=== PATIENT | female | born 1990 | race Caucasian/White ===

== ENCOUNTER 2019-01-03 18:43 | Emergency (ER) | payer OTHER ==
[2019-01-03 18:54] VITALS: RESP 16
[2019-01-03 19:42] LABS: Basophils % (A) 0 %; Eosinophils # (A) 0.1 k/uL (0-0.7); Eosinophils % (A) 1 %; HCT 37.3 % (34.0-46.0); HGB 12.8 gm/dL (11.4-16.0); Lymphocytes # (A) 2.7 k/uL (1.0-4.8); Lymphocytes % (A) 34 %; MCH 32.8 pg (25.0-35.0); MCHC 34.3 g/dL (31.0-37.0); MCV 95.7 fL (80.0-100.0); Mean Platelet Volume 7.1; Monocytes # (A) 0.3 k/uL (0-1.0); Monocytes % (A) 3 %; Neutrophils # (A) 4.7 k/uL (1.3-7.7); Neutrophils % (A) 60 %; Platelet Count 229 k/uL (150-450); RBC 3.89 m/uL (3.80-5.40); RDW 11.8 % (11.5-15.5); WBC 7.9 k/uL (3.8-10.6)
[2019-01-03] MEDS ORDERED: ACETAMINOPHEN TAB 325 MG TAB PO STA (19:47)
[2019-01-03 19:48] LABS: Appearance,Urine Clear (Clear); Bilirubin,Urine Negative (Negative); Blood,Urine Negative (Negative); Color,Urine Yellow; Glucose,Urine (UA) Negative (Negative); Ketones,Urine Negative (Negative); Leukocyte Esterase,Urine Negative (Negative); Nitrite,Urine Negative (Negative); Protein,Urine Negative (Negative); Specific Gravity,Urine 1.021 (1.001-1.035); Urobilinogen,Urine <2.0 mg/dL (<2.0)
--- NOTE | 2019-01-03 19:48 | ED ---
General Adult HPI - General Source: patient, RN notes reviewed Mode of arrival: ambulatory Limitations: no limitations <Crow Yoo - Last Filed: 01/03/19 19:43> <Chris Lyons - Last Filed: 01/03/19 21:04> - General Chief complaint: Recheck/Abnormal Lab/Rx Stated complaint: early /High BP & headache Time Seen by Provider: 01/03/19 18:58 - History of Present Illness Initial comments: This a 28-year-old female presents emergency Department with multiple complaints early . Patient states that she is concerned thyroid may be off as she had issues during her second with her thyroid. Patient states that she is A0 and just found out she was today. Patient states her last week she's felt nauseated had some intermittent headaches and just not felt her usual self. She is no current chest pain or shortness breath no abdominal pain no vaginal bleeding or abnormal discharge. No dysuria no hematuria. Patient did contact her [facility]PECTOR today in which she has a follow-up appointment. Patient states she is not around this area and will be following up at [facility] [facility]. (Crow Yoo) - Related Data Allergies Allergy/AdvReac Type Severity Reaction Status Date / Time metronidazole [From Flagyl] AdvReac DIZZINESS Verified 01/03/19 20:33 Review of Systems ROS Other: All systems not noted in ROS Statement are negative. <Crow Yoo - Last Filed: 01/03/19 19:43> ROS Other: All systems not noted in ROS Statement are negative. <Chris Lyons - Last Filed: 01/03/19 21:04> ROS Statement: Those systems with pertinent positive or pertinent negative responses have been documented in the HPI. Past Medical History Past Medical History: Thyroid Disorder History of Any Multi-Drug Resistant Organisms: None Reported Past Surgical History: Adenoidectomy, Cholecystectomy, Ear Surgery, Tonsillectomy Past Psychological History: Anxiety, Bipolar, Depression Smoking Status: Never smoker Past Alcohol Use History: None Reported Past Drug Use History: Marijuana <Crow Yoo - Last Filed: 01/03/19 19:43> General Exam Limitations: no limitations General appearance: alert, in no apparent distress Head exam: Present: atraumatic, normocephalic, normal inspection Eye exam: Present: normal appearance, PERRL, EOMI. Absent: scleral icterus, conjunctival injection, periorbital swelling ENT exam: Present: normal exam, mucous membranes moist Neck exam: Present: normal inspection, full ROM. Absent: tenderness, meningismus, lymphadenopathy Respiratory exam: Present: normal lung sounds bilaterally. Absent: respiratory distress, wheezes, rales, rhonchi, stridor Cardiovascular Exam: Present: regular rate, normal rhythm, normal heart sounds. Absent: systolic murmur, diastolic murmur, rubs, gallop, clicks GI/Abdominal exam: Present: soft, normal bowel sounds. Absent: distended, tenderness, guarding, rebound, rigid Neurological exam: Present: alert, oriented X3. Absent: altered Skin exam: Present: warm, dry, intact, normal color. Absent: rash <Crow Yoo - Last Filed: 01/03/19 19:43> Course Vital Signs 01/03/19 18:49 Temperature 97.9 F Pulse Rate 90 Respiratory 16 Rate Blood Pressure 126/76 O2 Sat by Pulse 99 Oximetry Medical Decision Making - Lab Data Result diagrams: 01/03/19 19:27 <Crow Yoo - Last Filed: 01/03/19 19:43> - Lab Data Result diagrams: 01/03/19 19:27 01/03/19 19:27 <Chris Lyons - Last Filed: 01/03/19 21:04> - Lab Data Lab Results 01/03/19 01/03/19 01/03/19 Range/Units 19:27 19:27 19:27 WBC 7.9 (3.8-10.6) k/uL RBC 3.89 (3.80-5.40) m/uL Hgb 12.8 (11.4-16.0) gm/dL Hct 37.3 (34.0-46.0) % MCV 95.7 (80.0-100.0) fL MCH 32.8 (25.0-35.0) pg MCHC 34.3 (31.0-37.0) g/dL RDW 11.8 (11.5-15.5) % Plt Count 229 (150-450) k/uL Neutrophils % 60 % Lymphocytes % 34 % Monocytes % 3 % Eosinophils % 1 % Basophils % 0 % Neutrophils # 4.7 (1.3-7.7) k/uL Lymphocytes # 2.7 (1.0-4.8) k/uL Monocytes # 0.3 (0-1.0) k/uL Eosinophils # 0.1 (0-0.7) k/uL Basophils # 0.0 (0-0.2) k/uL Sodium 139 (137-145) mmol/L Potassium 4.0 (3.5-5.1) mmol/L Chloride 103 (98-107) mmol/L Carbon Dioxide 26 (22-30) mmol/L Anion Gap 10 mmol/L BUN 15 (7-17) mg/dL Creatinine 0.72 (0.52-1.04) mg/dL Est GFR (CKD-EPI)AfAm >90 (>60 ml/min/1.73 sqM) Est GFR (CKD-EPI)NonAf >90 (>60 ml/min/1.73 sqM) Glucose 91 (74-99) mg/dL Calcium 9.2 (8.4-10.2) mg/dL TSH 3.490 (0.465-4.680) mIU/L HCG, Quant 137.2 mIU/mL Urine Color Yellow Urine Appearance Clear (Clear) Urine pH 7.0 (5.0-8.0) Ur Specific [place] 1.021 (1.001-1.035) Urine Protein Negative (Negative) Urine Glucose (UA) Negative (Negative) Urine Ketones Negative (Negative) Urine Blood Negative (Negative) Urine Nitrite Negative (Negative) Urine Bilirubin Negative (Negative) Urine Urobilinogen <2.0 (<2.0) mg/dL Ur Leukocyte Esterase Negative (Negative) Disposition <Crow Yoo - Last Filed: 01/03/19 19:43> Is patient prescribed a controlled substance at d/c from ED?: No <Chris Lyons - Last Filed: 01/03/19 21:04> Clinical Impression: Normal Disposition: HOME SELF-CARE Condition: Good Instructions (If sedation given, give patient instructions): (ED) Referrals: Nonstaff,Physician [Primary Care Provider] - 1-2 days
[2019-01-03 19:51] LABS: African American GFR (CKD) >90 (>60 ml/min/1.73 sqM); Anion Gap 10 mmol/L; Blood Urea Nitrogen 15 mg/dL (7-17); Calcium 9.2 mg/dL (8.4-10.2); Carbon Dioxide 26 mmol/L (22-30); Chloride 103 mmol/L (98-107); Glucose 91 mg/dL (74-99); Sodium 139 mmol/L (137-145)
[2019-01-03 20:08] LABS: HCG,Quantitative Serum 137.2 mIU/mL
[2019-01-03 21:17] VITALS: BP 110/63; PULSE 80; TEMP 98.2
== END 2019-01-03 21:17 | disposition home or self-care (01) ==
LOC: EC 18:43
DX: O99.89 Other specified diseases and conditions complicating pregnancy, childbirth and the puerperium (principal); R51 Headache; R11.0 Nausea; Z88.1 Allergy status to other antibiotic agents; Z3A.01 Less than 8 weeks gestation of pregnancy
CPT/HCPCS: 36415; 80048; 81003; 84443; 84702; 85025; 99284

== ENCOUNTER 2019-01-10 11:28 | Emergency (ER) | payer OTHER ==
[2019-01-10 11:48] VITALS: TEMP 98.5
[2019-01-10 12:17] LABS: Basophils % (A) 0 %; Eosinophils # (A) 0.1 k/uL (0-0.7); Eosinophils % (A) 1 %; HCT 37.6 % (34.0-46.0); HGB 13.2 gm/dL (11.4-16.0); Lymphocytes # (A) 1.6 k/uL (1.0-4.8); Lymphocytes % (A) 15 %; MCH 33.1 pg (25.0-35.0); MCV 94.6 fL (80.0-100.0); Mean Platelet Volume 7.2; Monocytes # (A) 0.4 k/uL (0-1.0); Monocytes % (A) 4 %; Neutrophils # (A) 8.7 k/uL (1.3-7.7); Neutrophils % (A) 80 %; Platelet Count 233 k/uL (150-450); RBC 3.97 m/uL (3.80-5.40); RDW 11.7 % (11.5-15.5); WBC 10.9 k/uL (3.8-10.6)
[2019-01-10] MEDS ORDERED: ACETAMINOPHEN TAB 325 MG TAB PO STA (12:23)
--- NOTE | 2019-01-10 12:26 | ED ---
Female Urogenital HPI - General Chief complaint: Urogenital Stated complaint: Poss Miscarriage Time Seen by Provider: 01/10/19 11:46 Source: patient Mode of arrival: wheelchair Limitations: no limitations - History of Present Illness Initial comments: A1 with LMP 12/11 presenting to the ER for cc of cramping/vaginal bleeidng. Patient states she has had cramping and vaginal bleeding for weeks. Patient states the bleeding increased and now she has large clots. Patient concerned a miscarriage. Patient denies any unilateral pain denies any severe pain states is more so like cramping. Patient denies back pain fevers chills she denies vaginal discharge. Patient denies dysuria urgency frequency. Remaining review of systems negative. Upon arrival patient appears well-nourished signs of acute distress. - Related Data Home Medications Medication Instructions Recorded Confirmed Levothyroxine Sodium [Synthroid] 88 mcg PO DAILY 01/03/19 01/10/19 Acetaminophen Tab [Tylenol Tab] 500 mg PO Q6HR PRN 01/10/19 01/10/19 Allergies Allergy/AdvReac Type Severity Reaction Status Date / Time metronidazole [From Flagyl] AdvReac DIZZINESS Verified 01/10/19 12:06 Review of Systems ROS Statement: Those systems with pertinent positive or pertinent negative responses have been documented in the HPI. ROS Other: All systems not noted in ROS Statement are negative. Past Medical History Past Medical History: Thyroid Disorder History of Any Multi-Drug Resistant Organisms: None Reported Past Surgical History: Adenoidectomy, Cholecystectomy, Ear Surgery, Tonsillectomy Past Psychological History: Anxiety, Bipolar, Depression Smoking Status: Never smoker Past Alcohol Use History: None Reported Past Drug Use History: Marijuana General Exam - General Exam Comments Initial Comments: General: The patient is awake and alert, in no distress, and does not appear acutely ill. Eye: Pupils are equal, round and reactive to light, extra-ocular movements are intact. No nystagmus. There is normal conjunctiva bilaterally. No signs of icterus. Ears, nose, mouth and throat: There are moist mucous membranes and no oral lesions. Neck: The neck is supple, there is no tenderness or JVD. Cardiovascular: There is a regular rate and rhythm. No murmur, rub or gallop is appreciated. Respiratory: Lungs are clear to auscultation, respirations are non-labored, breath sounds are equal. No wheezes, stridor, rales, or rhonchi. Gastrointestinal: Soft, non-distended, non-tender abdomen without masses or or ganomegaly noted. There is no rebound or guarding present. Pelvic: Cervical os is closed. Blood in vaginal vault. No adnexal cervical motion tenderness. No external lesions. Vaginal mucosa pink well rugated. Musculoskeletal: Normal ROM, no tenderness. Strength 5/5. Sensation intact. Pulses equal bilaterally 2+. Neurological: A&O x 3. CN II-XII intact, There are no obvious motor or sensory deficits. Coordination appears grossly intact. Speech is normal. Skin: Skin is warm and dry and no rashes or lesions are noted. Psychiatric: Cooperative, appropriate mood & affect, normal judgment. Limitations: no limitations Course Vital Signs 01/10/19 01/10/19 11:46 14:41 Temperature 98.5 F Pulse Rate 89 80 Respiratory 18 16 Rate Blood Pressure 122/82 134/71 O2 Sat by Pulse 97 99 Oximetry Medical Decision Making - Medical Decision Making Well appearing 28 year old female. Presents for vaginal pitting cramping. Ultrasound revealed a low-lying intrauterine . 2 early for cardiac movement. Possibility of threatened miscarriage. Patient A+. No indication of Brynn. Patient has no adnexal or cervical motion tenderness. there is discharge in the vaginal vault. Hemoglobin stable patient's vital signs stable. No heavy uncontrolled bleeding. 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 Patient is agreeable to this care plan at discharge at this time. - Lab Data Result diagrams: 01/10/19 12:00 01/10/19 12:00 Lab Results 01/10/19 01/10/19 01/10/19 Range/Units 12:00 12:00 12:00 WBC 10.9 H (3.8-10.6) k/uL RBC 3.97 (3.80-5.40) m/uL Hgb 13.2 (11.4-16.0) gm/dL Hct 37.6 (34.0-46.0) % MCV 94.6 (80.0-100.0) fL MCH 33.1 (25.0-35.0) pg MCHC 35.0 (31.0-37.0) g/dL RDW 11.7 (11.5-15.5) % Plt Count 233 (150-450) k/uL Neutrophils % 80 % Lymphocytes % 15 % Monocytes % 4 % Eosinophils % 1 % Basophils % 0 % Neutrophils # 8.7 H (1.3-7.7) k/uL Lymphocytes # 1.6 (1.0-4.8) k/uL Monocytes # 0.4 (0-1.0) k/uL Eosinophils # 0.1 (0-0.7) k/uL Basophils # 0.0 (0-0.2) k/uL Sodium 140 (137-145) mmol/L Potassium 4.1 (3.5-5.1) mmol/L Chloride 104 (98-107) mmol/L Carbon Dioxide 26 (22-30) mmol/L Anion Gap 10 mmol/L BUN 13 (7-17) mg/dL Creatinine 0.79 (0.52-1.04) mg/dL Est GFR (CKD-EPI)AfAm >90 (>60 ml/min/1.73 sqM) Est GFR (CKD-EPI)NonAf >90 (>60 ml/min/1.73 sqM) Glucose 98 (74-99) mg/dL Calcium 9.7 (8.4-10.2) mg/dL Total Bilirubin 0.4 (0.2-1.3) mg/dL AST 21 (14-36) U/L ALT 19 (9-52) U/L Alkaline Phosphatase 31 L (38-126) U/L Total Protein 7.4 (6.3-8.2) g/dL Albumin 4.4 (3.5-5.0) g/dL HCG, Quant 2130.9 mIU/mL Urine Color Urine Appearance (Clear) Urine pH (5.0-8.0) Ur Specific [place] (1.001-1.035) Urine Protein (Negative) Urine Glucose (UA) (Negative) Urine Ketones (Negative) Urine Blood (Negative) Urine Nitrite (Negative) Urine Bilirubin (Negative) Urine Urobilinogen (<2.0) mg/dL Ur Leukocyte Esterase (Negative) Urine RBC (0-5) /hpf Urine WBC (0-5) /hpf Ur Squamous Epith Cells (0-4) /hpf Urine Bacteria (None) /hpf Urine Mucus (None) /hpf Blood Type A Positive Blood Type Confirm Blood Type Recheck CABO Indicated Antibody Screen NEGATIVE Spec Expiration Date 01/13/2019 - 229901/10/19 01/10/19 Range/Units 12:02 13:05 WBC (3.8-10.6) k/uL RBC (3.80-5.40) m/uL Hgb (11.4-16.0) gm/dL Hct (34.0-46.0) % MCV (80.0-100.0) fL MCH (25.0-35.0) pg MCHC (31.0-37.0) g/dL RDW (11.5-15.5) % Plt Count (150-450) k/uL Neutrophils % % Lymphocytes % % Monocytes % % Eosinophils % % Basophils % % Neutrophils # (1.3-7.7) k/uL Lymphocytes # (1.0-4.8) k/uL Monocytes # (0-1.0) k/uL Eosinophils # (0-0.7) k/uL Basophils # (0-0.2) k/uL Sodium (137-145) mmol/L Potassium (3.5-5.1) mmol/L Chloride (98-107) mmol/L Carbon Dioxide (22-30) mmol/L Anion Gap mmol/L BUN (7-17) mg/dL Creatinine (0.52-1.04) mg/dL Est GFR (CKD-EPI)AfAm (>60 ml/min/1.73 sqM) Est GFR (CKD-EPI)NonAf (>60 ml/min/1.73 sqM) Glucose (74-99) mg/dL Calcium (8.4-10.2) mg/dL Total Bilirubin (0.2-1.3) mg/dL AST (14-36) U/L ALT (9-52) U/L Alkaline Phosphatase (38-126) U/L Total Protein (6.3-8.2) g/dL Albumin (3.5-5.0) g/dL HCG, Quant mIU/mL Urine Color Yellow Urine Appearance Clear (Clear) Urine pH 6.0 (5.0-8.0) Ur Specific [place] 1.032 (1.001-1.035) Urine Protein Trace H (Negative) Urine Glucose (UA) Negative (Negative) Urine Ketones Negative (Negative) Urine Blood Moderate H (Negative) Urine Nitrite Negative (Negative) Urine Bilirubin Negative (Negative) Urine Urobilinogen <2.0 (<2.0) mg/dL Ur Leukocyte Esterase Trace H (Negative) Urine RBC 2 (0-5) /hpf Urine WBC 1 (0-5) /hpf Ur Squamous Epith Cells 1 (0-4) /hpf Urine Bacteria Rare H (None) /hpf Urine Mucus Few H (None) /hpf Blood Type Blood Type Confirm A Positive Blood Type Recheck Antibody Screen Spec Expiration Date Disposition Clinical Impression: Threatened miscarriage Disposition: HOME SELF-CARE Condition: Good Instructions (If sedation given, give patient instructions): Threatened Miscarriage (ED) Additional Instructions: Please use medication as discussed. Please follow-up with your OBGYN in next week. Please return to emergency room if the symptoms increase or worsen or for any other concerns. Is patient prescribed a controlled substance at d/c from ED?: No Referrals: Nonstaff,Physician [Primary Care Provider] - 1-2 days Time of Disposition: 14:29
[2019-01-10 12:28] LABS: ALT 19 U/L (9-52); AST 21 U/L (14-36); African American GFR (CKD) >90 (>60 ml/min/1.73 sqM); Albumin 4.4 g/dL (3.5-5.0); Alkaline Phosphatase 31 U/L (38-126); Anion Gap 10 mmol/L; Blood Urea Nitrogen 13 mg/dL (7-17); Calcium 9.7 mg/dL (8.4-10.2); Carbon Dioxide 26 mmol/L (22-30); Chloride 104 mmol/L (98-107); Glucose 98 mg/dL (74-99); Non-African American GFR(CKD) >90 (>60 ml/min/1.73 sqM); Potassium 4.1 mmol/L (3.5-5.1); Sodium 140 mmol/L (137-145); Total Bilirubin 0.4 mg/dL (0.2-1.3); Total Protein 7.4 g/dL (6.3-8.2)
[2019-01-10 12:43] LABS: HCG,Quantitative Serum 2130.9 mIU/mL
[2019-01-10 13:12] LABS: Appearance,Urine Clear (Clear); Bacteria,Urine Rare /hpf; Bilirubin,Urine Negative (Negative); Blood,Urine Moderate (Negative); Color,Urine Yellow; Glucose,Urine (UA) Negative (Negative); Ketones,Urine Negative (Negative); Leukocyte Esterase,Urine Trace (Negative); Mucus,Urine Few /hpf; Nitrite,Urine Negative (Negative); Protein,Urine Trace (Negative); RBC,Urine 2 /hpf (0-5); Specific Gravity,Urine 1.032 (1.001-1.035); Squamous Epithelial Cell,Urine 1 /hpf (0-4); Urobilinogen,Urine <2.0 mg/dL (<2.0); WBC,Urine 1 /hpf (0-5)
--- NOTE | 2019-01-10 14:07 | US ---
EXAMINATION TYPE: US OB <= 14 wk transvag DATE OF EXAM: 01/10/2019 12:52 PM COMPARISON: NONE CLINICAL HISTORY: pain. bleeding x 1 day EXAM PERFORMED: Transvaginal (TV) and Transabdominal (TA) Endovaginal scanning performed for better evaluation of the uterus and ovaries. EXAM MEASUREMENTS: GESTATIONAL AGE / DATING Physician Established: Not established Dates by LMP: (5 weeks/4 days) EDC: 09/08/2019 Dates by First Scan: No previous Dates by Current Scan for: Too early to calculate MATERNAL ANATOMY Uterus: 10.8 x 6.8 x 6.1 cm Right Ovary: 3.5 x 2.6 x 3.1 cm Left Ovary: 2.7 x 2.4 x 2.1 cm Post CDS / Adnexa: wnl Presence of free fluid: Small amount in CDS Presence of corpus luteal cyst: Left cyst = 1.2 x 1.0 x 0.9 cm, Complex cyst = 0.9 x 0.9 x 0.9 cm.? ruptured cyst Presence of subchorionic bleed: GESTATION / SURVEY CRL: Not seen MSD: 0.7 cm (Too early to calculate Yolk Sac (normal less than 6mm): 0.2 cm Heart Rate: Not detected bpm Rhythm: Not detected IUP: Gestational sac with yolk sac seen in mid, anterior portion of Uterus. Date of LMP: 12/02/2018 Beta HcG (if available): There are nabothian cysts noted. The gestational sac appears somewhat low within the uterus IMPRESSION: Findings may represent an early gestation, spontaneous not excluded. Correlate. Follow-up as indicated. MTDD
[2019-01-10 14:42] VITALS: BP 134/71; PULSE 80; RESP 16
== END 2019-01-10 14:40 | disposition home or self-care (01) ==
LOC: EC 11:28
DX: O20.0 Threatened abortion (principal); O99.282 Endocrine, nutritional and metabolic diseases complicating pregnancy, second trimester; E07.9 Disorder of thyroid, unspecified; Z3A.14 14 weeks gestation of pregnancy; Z79.890 Hormone replacement therapy; Z88.1 Allergy status to other antibiotic agents
CPT/HCPCS: 36415; 76801; 76817; 80053; 81001; 84702; 85025; 86850; 86900; 86901; 99284